=== PATIENT | male | born 1940 | race Caucasian/White ===

== ENCOUNTER 2017-01-08 17:25 | Emergency (ER) | payer OTHER, MEDICARE ==
[~2017-01-08] VITALS: Ht 175.3 cm; Wt 105.0 kg
[~2017-01-08 17:25] MED LIST: ALBUTEROL17 GM IH; ALLOPURINOL100 MG PO; AMLODIPINE BESYL5 MG PO; ASMANEX HFA13 GM IH; BUPROPION HCL150 M2 PO; BUPROPION XL300 MG PO; CELEXA40 MG PO; CITALOPRAM HBR40 M1 PO; CLONAZEPAM1 MG PO; CLONAZEPAM2 MG PO; COLCRYS0.6 MG PO; Colace PO; DULCOLAX5 MG PO; ELAVIL10 MG PO; ENULOSE10 GM/15 M PO; FLORINEF ACETA0.1 MG PO; Flagyl PO; GABAPENTIN400 MG PO; GLIMEPIRIDE1 MG PO; GLIMEPIRIDE2 MG PO; IMDUR120 MG PO; IMDUR60 MG PO; ISOSORBIDE MONO30 MG PO; KAPIDEX PO; KEPPRA250 M1 PO; Keflex PO; Keppra PO; LEVETIRACETAM250 MG PO; LO-DOSE ASPIRIN81 M1 PO; LOPRESSOR50 MG PO; LOVASTATIN40 MG PO; LYRICA50 MG PO; Levaquin PO; METOPROLOL SUCC25 MG PO; METOPROLOL SUCC50 MG PO; METOZOLV ODT5 MG PO; MIRAPEX1.5 MG PO; MS CONTIN15 MG PO; Micro-K,K-Tab,K-Dur, PO; NEURONTIN400 MG PO; NITROGLYCERIN0.4 MG PO; NITROSTAT0.4 MG SL; OMEPRAZOLE40 M1 PO; PANTOPRAZOLE SO40 MG PO; PAROXETINE HCL20 MG PO; PLAVIX75 MG PO; POTASSIUM CHLO10 MEQ PO; PRAVASTATIN SOD40 MG PO; PRIMIDONE50 MG PO; PROAIR HFA8.5 GM IH; PROTONIX40 M1 PO; PROTONIX40 MG PO; RANEXA500 MG PO; REGLAN5 MG PO; SIMVASTATIN40 M1 PO; SIMVASTATIN40 MG PO; TAMIFLU75 MG PO; TRAMADOL HCL50 MG PO; TRIAMCINOLONE AC5 GM DT; ULORIC40 MG PO; VITAMIN D-32000 UNI2 PO; Vitamin B-12 PO; WELLBUTRIN SR150 MG PO; ZANTAC150 MG PO; ZOFRAN4 MG PO; Zocor PO; [UNRECOGNIZED DRUG - OTHER] PO; [UNRECOGNIZED DRUG - OTHER] PO
[2017-01-08 18:06] LABS: MCH 28.8 PG (29.0-34.0); MCHC 32.4 G/DL (30.0-36.0); MEAN PLAT.VOLUME 9.7 uM^3 (9.0-12.4); PLATELET COUNT 261 K/uL (156-360); RBC DIS.WIDTH-CV 14.1 % (11.8-14.6); RBC DIS.WIDTH-SD 45.8 % (39-53); RED BLOOD COUNT 5.17 M/uL (4.00-5.50)
[2017-01-08 18:16] LABS: CHLORIDE 107 mEq/L (99-109); POTASSIUM 4.8 mEq/L (3.7-5.4); SODIUM 140 mEq/L (136-147)
[2017-01-08 18:18] LABS: GLUCOSE 139 mg/dL (70-99)
[2017-01-08 18:19] LABS: ANION GAP 10 MEQ/L (2-14)
[2017-01-08 18:20] LABS: TOTAL BILIRUBIN 0.5 mg/dL (0.0-1.0)
[2017-01-08 18:21] LABS: ALKALINE PHOSPHATASE 56 IU/L (3-129)
[2017-01-08 18:22] LABS: GFR ESTIMATE (CALCULATED) 42 mL/min/
[2017-01-08 18:23] LABS: UREA NITROGEN (BUN) 23 mg/dL (9-23)
[2017-01-08 18:25] LABS: LIPASE 27 U/L (1.0-51.0)
[2017-01-08 19:11] LABS: TROP-I INTERPRETATION NEGATIVE; TROPONIN-I < 0.01 ng/mL (0.0-0.30)
[2017-01-08 20:42] LABS: ADD MIUA? NO; BILIRUBIN NEGATIVE; BLOOD NEGATIVE; COLOR YELLOW ((YELLOW)); GLUCOSE (STRIP) NEGATIVE; KETONES NEGATIVE; LEUKOCYTES NEGATIVE; NITRITE NEGATIVE; PROTEIN (STRIP) NEGATIVE; SPECIFIC GRAVITY 1.024 (1.000-1.030); UCUL ADDED? NO; UROBILINOGEN 0.2 MG/DL (0.2-1.0)
[2017-01-08] MEDS ORDERED: CIPRO500 MG PO (21:37)
[2017-01-08] MEDS ORDERED: FLAGYL500 MG PO (21:37)
[2017-01-08] MEDS ORDERED: OXAYDO5 MG PO (21:37)
[2017-01-08 22:03] VITALS: BP 131/71
== END 2017-01-08 22:03 | disposition home or self-care (01) ==
LOC: EME 17:25
PROVIDERS: Emergency Medicine
DX: K57.32 Diverticulitis of large intestine without perforation or abscess without bleeding (principal); I10 Essential (primary) hypertension; E11.9 Type 2 diabetes mellitus without complications; I25.10 Atherosclerotic heart disease of native coronary artery without angina pectoris; Z95.1 Presence of aortocoronary bypass graft; Z95.5 Presence of coronary angioplasty implant and graft; Z79.02 Long term (current) use of antithrombotics/antiplatelets; Z79.82 Long term (current) use of aspirin; Z85.46 Personal history of malignant neoplasm of prostate
CPT/HCPCS: 74176; 80053; 81003; 83605; 83690; 84484; 85027; 93005; 99281; 99285; J2270; J2405

== ENCOUNTER → 2018-02-12 | Outpatient (CLI) | payer OTHER, MEDICARE ==
[~2018-02-12] MED LIST changes: +CIPRO500 MG PO; +FLAGYL500 MG PO; +OXAYDO5 MG PO
== END | disposition home or self-care (01) ==
LOC: NUC 09:00
DX: R25.1 Tremor, unspecified (principal); R51 Headache; R94.02 Abnormal brain scan
CPT/HCPCS: 78607; A9584